=== PATIENT | female | born 1970 | race Caucasian/White ===

== ENCOUNTER 2016-11-09 15:29 | Emergency (ER) | payer MEDICAID ==
[~2016-11-09] VITALS: Ht 160 cm; Wt 70.3 kg
[2016-11-09 15:34] VITALS: BP 116/72
[2016-11-09 17:38] LABS: UA SPECIFIC GRAVITY >=1.030 (1.005-1.035); microscopic required? YES; urine erythrocyte TRACE (NEGATIVE)
== END 2016-11-09 19:25 | disposition home or self-care (01) ==
LOC: ED 15:29
PROVIDERS: Emergency Medicine
DX: N76.0 Acute vaginitis (principal)
CPT/HCPCS: 87491; 87591; J0696; Q0092

== ENCOUNTER 2017-08-09 17:15 | Emergency (ER) | payer MEDICAID ==
[~2017-08-09] VITALS: Ht 162.6 cm; Wt 72.2 kg
[2017-08-09 17:28] VITALS: BP 129/78
== END 2017-08-09 19:36 | disposition home or self-care (01) ==
LOC: ED 17:15
DX: B34.9 Viral infection, unspecified (principal); R30.0 Dysuria; D64.9 Anemia, unspecified

== ENCOUNTER 2017-12-07 19:12 | Emergency (ER) | payer MEDICAID ==
[~2017-12-07] VITALS: Ht 157.5 cm; Wt 76.7 kg
[2017-12-07 19:22] VITALS: Ht 157.5 cm; Wt 76.7 kg
[2017-12-07 20:18] LABS: BASOPHIL % 0.5 % (0-2); PLATELET COUNT 369 x10^3mcL (130-400)
[2017-12-07 20:20] LABS: RED CELL DISTRIBUTION WIDTH 17.4 % (11.5-14.5)
[2017-12-07 20:26] LABS: CALCIUM 8.4 mg/dL (8.5-10.1); CARBON DIOXIDE 26.6 mmol/L (21-32); CHLORIDE SERUM 105 mmol/L (98-107); CREATININE SERUM 0.7 mg/dL (0.6-1.0); GFR1 > 60 mL/min; GLUCOSE SERUM 94 mg/dL (74-106); POTASSIUM SERUM 3.6 mmol/L (3.5-5.1); SODIUM SERUM 140 mmol/L (136-145)
[2017-12-07 20:30] LABS: ALKALINE PHOSPHATASE 84 U/L (46-116); ALT/SGPT 11 U/L (14-59); AST/SGOT 9 U/L (15-37); BILIRUBIN TOTAL 0.23 mg/dL (0.20-1.00); TOTAL PROTEIN, SERUM 7.4 g/dL (6.4-8.2)
[2017-12-07 20:30] LABS: UA SPECIFIC GRAVITY >=1.030 (1.005-1.035); microscopic required? YES; urine erythrocyte 2+ (NEGATIVE)
[2017-12-07 20:33] LABS: ALBUMIN 2.9 g/dL (3.4-5.0)
[2017-12-08 00:22] VITALS: BP 111/74
== END 2017-12-08 00:22 | disposition home or self-care (01) ==
LOC: ED 19:12
PROVIDERS: Emergency Medicine
DX: N93.9 Abnormal uterine and vaginal bleeding, unspecified (principal); D64.9 Anemia, unspecified
CPT/HCPCS: 36415

== ENCOUNTER 2018-03-31 11:04 | Emergency (ER) | payer MEDICAID ==
[~2018-03-31] VITALS: Ht 162.6 cm; Wt 76.2 kg
[2018-03-31 11:09] VITALS: Ht 162.6 cm; Wt 76.2 kg
[2018-03-31 11:46] LABS: CALCIUM 8.7 mg/dL (8.5-10.1); CARBON DIOXIDE 26.6 mmol/L (21-32); CHLORIDE SERUM 103 mmol/L (98-107); CREATININE SERUM 0.6 mg/dL (0.6-1.0); GFR1 > 60 mL/min; GLUCOSE SERUM 122 mg/dL (74-106); SODIUM SERUM 137 mmol/L (136-145)
[2018-03-31 11:55] LABS: ALKALINE PHOSPHATASE 92 U/L (46-116); ALT/SGPT 11 U/L (14-59); AST/SGOT 9 U/L (15-37); BILIRUBIN TOTAL 0.2 mg/dL (0.20-1.00)
[2018-03-31 11:58] LABS: ALBUMIN 3.1 g/dL (3.4-5.0)
[2018-03-31 12:19] LABS: BASOPHIL % 0.2 % (0-2)
[2018-03-31 12:25] LABS: ERYTHROCYTE SED RATE 46 mm/hr (0-20)
[2018-03-31 12:30] LABS: PLATELET COUNT 447 x10^3mcL (130-400); RED CELL DISTRIBUTION WIDTH 18.9 % (11.5-14.5)
[2018-03-31 12:32] LABS: ovalocyte/elliptocyte 1+
[2018-03-31 12:33] LABS: rbc morphology (normal/abnorm) ABNORMAL (NORMAL); tear drop cell (dacryocyte) 1+
[2018-03-31 14:02] VITALS: BP 117/89
== END 2018-03-31 14:03 | disposition home or self-care (01) ==
LOC: ED 11:04
PROVIDERS: Emergency Medicine
DX: R51 Headache (principal); D64.9 Anemia, unspecified; R20.2 Paresthesia of skin
CPT/HCPCS: 36415; J1100

== ENCOUNTER 2018-07-22 17:36 | Emergency (ER) | payer MEDICAID ==
[~2018-07-22] VITALS: Ht 162.6 cm; Wt 80.3 kg
[2018-07-22 18:01] VITALS: Ht 162.6 cm; Wt 80.3 kg
[2018-07-22 19:27] VITALS: BP 125/65
== END 2018-07-22 19:27 | disposition home or self-care (01) ==
LOC: ED 17:36
DX: K11.21 Acute sialoadenitis (principal); F17.210 Nicotine dependence, cigarettes, uncomplicated; J02.9 Acute pharyngitis, unspecified
CPT/HCPCS: 99406